=== PATIENT | male | born 1945 | race Caucasian/White ===

== ENCOUNTER 2019-02-23 14:33 | Inpatient (IN) | payer OTHER ==
[2019-02-23] MEDS ORDERED: Sodium Chloride 0.9% 10 ML Syringe FLUSH PRN (14:50)
--- NOTE | 2019-02-23 15:00 | EDM.PDOC ---
ED HPI GENERAL MEDICAL PROBLEM - General Chief Complaint: Respiratory Problem Stated Complaint: SHORTNESS OF BREATH Time Seen by Provider: 02/23/19 14:37 Source of Information: Reports: Patient History Limitations: Reports: No Limitations - History of Present Illness INITIAL COMMENTS - FREE TEXT/NARRATIVE: Patient is a 73-year-old gentleman who presents to the emergency department this afternoon with a complaint of shortness of breath. Patient states that approximately noon today while laying in bed he developed shortness of breath. Patient denied any chest pain at that time. Patient admits to having a cough for a couple days and some yellow sputum. Patient states that he quit smoking cigarettes 3 weeks ago. Patient felt warm and clammy today but did not take temperature. Patient has history of hypertension but no further cardiac issues or workups. Patient denies nausea, vomiting, diarrhea, out of country travel, lower extremity edema, chest pain, headache, or trauma. Onset: Today Onset Date: 02/23/19 Onset Time: 12:00 Duration: Hour(s): Quality: Reports: Other (Denies chest pain) Improves with: Reports: None Worsens with: Reports: None Context: Reports: Other (Initiated while at rest) Associated Symptoms: Reports: No Other Symptoms - Related Data Allergies Allergy/AdvReac Type Severity Reaction Status Date / Time No Known Drug Allergies Allergy Cannot Verified 02/23/19 16:21 Remember pineapple Allergy Facial Verified 02/23/19 16:21 Swelling Home Meds: Home Meds Cyclobenzaprine [Flexeril] 20 mg PO BEDTIME 02/23/19 [History] DULoxetine HCl [Cymbalta] 60 mg PO DAILY 02/23/19 [History] Lisinopril 10 mg PO DAILY 02/23/19 [History] Morphine Sulfate [Morphine Sulfate ER] 45 mg PO Q12H 02/23/19 [History] Omeprazole 20 mg PO BID 02/23/19 [History] Tamsulosin [Tamsulosin 24 Hr] 0.4 mg PO DAILY 02/23/19 [History] amLODIPine Besylate [Norvasc] 5 mg PO DAILY 02/23/19 [History] ED ROS GENERAL - Review of Systems Review Of Systems: ROS reveals no pertinent complaints other than HPI. Constitutional: Reports: Fever HEENT: Reports: No Symptoms Respiratory: Reports: Shortness of Breath, Cough, Sputum Cardiovascular: Reports: No Symptoms. Denies: Chest Pain Endocrine: Reports: No Symptoms GI/Abdominal: Reports: No Symptoms : Reports: No Symptoms Musculoskeletal: Reports: No Symptoms Skin: Reports: No Symptoms Neurological: Reports: No Symptoms Psychiatric: Reports: No Symptoms Hematologic/Lymphatic: Reports: No Symptoms Immunologic: Reports: No Symptoms ED EXAM, GENERAL - Physical Exam Exam: See Below Exam Limited By: No Limitations General Appearance: Alert, WD/WN, No Apparent Distress Eye Exam: Bilateral Eye: Normal Inspection Nose: Normal Inspection, Normal Mucosa, No Blood Throat/Mouth: Normal Inspection, Normal Oropharynx, No Airway Compromise Head: Atraumatic, Normocephalic Neck: Normal Inspection, Supple, Non-Tender, Full Range of Motion Respiratory/Chest: No Respiratory Distress, No Accessory Muscle Use, Chest Non- Tender, Decreased Breath Sounds (Bibasilar) Cardiovascular: No Murmur, Tachycardia GI/Abdominal: Normal Bowel Sounds, Soft, Non-Tender, No Organomegaly, No Distention, No Abnormal Bruit, No Mass Back Exam: Normal Inspection. No: CVA Tenderness (L), CVA Tenderness (R) Extremities: Normal Inspection, No Pedal Edema Neurological: Alert, Oriented, Normal Cognition Psychiatric: Normal Affect, Normal Mood Skin Exam: Warm, Dry, Intact, Normal Color, No Rash Lymphatic: No Adenopathy Course - Vital Signs Last Recorded V/S: Last Vital Signs Temp 98.6 F 02/24/19 07:00 Pulse 78 02/24/19 07:00 Resp 20 02/24/19 07:00 BP 140/71 02/24/19 07:00 Pulse Ox 93 L 02/24/19 07:00 - Orders/Labs/Meds Orders: Active Orders 24 hr Category Date Time Status EKG Documentation Completion [RC] ASDIRECTED Care 02/23/19 14:49 Active Peripheral IV Care [RC] . DIRECTED Care 02/23/19 14:50 Active CULTURE BLOOD [BC] Stat Lab 02/23/19 15:20 Received CULTURE BLOOD [BC] Stat Lab 02/23/19 15:30 Received Sodium Chloride 0.9% [Saline Flush] Med 02/23/19 14:50 Active 10 ml FLUSH Q8HR PRN Blood Culture x2 Reflex Set [OM.PC] Stat Oth 02/23/19 15:00 Ordered Peripheral IV Insertion Adult [OM.PC] Routine Oth 02/23/19 14:50 Ordered Medication Orders Acetaminophen (Tylenol) 650 mg PO Q4H PRN PRN Reason: Pain (Mild 1-3)/fever Albuterol/Ipratropium (Duoneb 3.0-0.5 Mg/3 Ml) 3 ml NEB Q4H PRN PRN Reason: Shortness Of Breath/wheezing Amlodipine Besylate (Norvasc) 5 mg PO BEDTIME [facility] Azithromycin (Zithromax) 250 mg PO DAILY [facility] Last Admin: 02/24/19 09:16 Dose: 250 mg Ceftriaxone Sodium (Rocephin) 1 gm IVPUSH Q24H [facility] Last Admin: 02/24/19 09:17 Dose: 1 gm Cyclobenzaprine HCl (Flexeril) 20 mg PO BEDTIME [facility] Last Admin: 02/23/19 21:33 Dose: Duloxetine HCl (Cymbalta) 60 mg PO DAILY [facility] Last Admin: 02/24/19 09:16 Dose: 60 mg Sodium Chloride (Normal Saline) 1,000 mls @ 125 mls/hr IV ASDIRECTED [facility] Last Admin: 02/24/19 04:27 Dose: 125 mls/hr Infusion: 02/24/19 04:22 Dose: 125 mls/hr Admin: 02/23/19 20:22 Dose: 125 mls/hr Lisinopril (Prinivil) 10 mg PO DAILY [facility] Last Admin: 02/24/19 10:01 Dose: Not Given Magnesium Oxide (Magnesium Oxide) 500 mg PO DAILY [facility] Last Admin: 02/24/19 09:16 Dose: 500 mg Morphine Sulfate (Ms Contin) 45 mg PO Q12H [facility] Last Admin: 02/24/19 07:30 Dose: 45 mg Admin: 02/23/19 21:33 Dose: Omeprazole (Omeprazole) 20 mg PO BIDAC [facility] Last Admin: 02/24/19 07:27 Dose: 20 mg Admin: 02/23/19 21:34 Dose: Sodium Chloride (Saline Flush) 10 ml FLUSH Q8HR PRN PRN Reason: keep vein open Last Admin: 02/24/19 09:17 Dose: 10 ml Tamsulosin HCl (Flomax) 0.4 mg PO DAILY [facility] Last Admin: 02/24/19 09:16 Dose: 0.4 mg Labs: Laboratory Tests 02/23/19 02/23/19 02/23/19 Range/Units 15:30 15:30 15:30 WBC 17.62 H (5.00-10.00) 10^3/uL RBC 3.88 L (4.50-6.00) 10^6/uL Hgb 12.6 L (13.0-17.0) g/dL Hct 36.5 L (40.0-52.0) % MCV 94.1 H (82.0-92.0) fL MCH 32.5 H (27.0-31.0) pg MCHC 34.5 (32.0-36.0) g/dL RDW 12.2 (11.5-14.5) % Plt Count 284 (150-400) 10^3/uL MPV 9.3 (7.4-10.4) fL Add Manual Diff Yes Neutrophils % (Manual) 94 H (50-70) % Lymphocytes % (Manual) 4 L (20-40) % Monocytes % (Manual) 2 (2-8) % Absolute Neutrophils 16.5628 Lymphocytes # (Manual) 0.7048 Monocytes # (Manual) 0.3524 PT 9.7 (8.9-11.4) SEC INR 1.0 (0.9-1.1) APTT 29.3 (23.1-31.3) SEC Sodium 129 L (136-145) mmol/L Potassium 4.2 (3.3-5.3) mmol/L Chloride 92 L (98-115) mmol/L Carbon Dioxide 12.7 L (21.0-32.0) mmol/L Anion Gap 28.5 H (5-15) mmol/L BUN 14 (6-25) mg/dL Creatinine 0.83 (0.51-1.17) mg/dL Est Cr Clr Drug Dosing 75.36 mL/min Estimated GFR (MDRD) > 60 mL/min Glucose 85 (75 - 99) mg/dL Calcium 8.7 (8.7-10.3) mg/dL Magnesium 1.7 L (1.8-2.4) mg/dL Total Bilirubin 1.5 H (0.2-1.0) mg/dL AST 38 H (15-37) U/L ALT 18 (12-78) U/L Alkaline Phosphatase 91 (46-116) IU/L CK-MB (CK-2) 1.50 (0.00-4.30) ng/mL Troponin I 0.29 H* (0.00-0.070) ng/mL B-Natriuretic Peptide 27 (0-100) pg/mL Total Protein 7.8 (6.4-8.2) g/dL Albumin 3.51 (3.00-4.80) g/dL Meds: Medications Generic Name Dose Route Start Last Admin Trade Name Freq PRN Reason Stop Dose Admin Acetaminophen 650 mg 02/23/19 16:24 Tylenol PO Q4H PRN Pain (Mild 1-3)/fever Albuterol/Ipratropium 3 ml 02/23/19 16:24 Duoneb 3.0-0.5 Mg/3 Ml NEB Q4H PRN Shortness Of Breath/wheezing Amlodipine Besylate 5 mg 02/24/19 21:00 Norvasc PO BEDTIME [facility] Azithromycin 250 mg 02/24/19 09:00 02/24/19 09:16 Zithromax PO 250 mg DAILY [facility] Administration Ceftriaxone Sodium 1 gm 02/24/19 09:00 02/24/19 09:17 Rocephin IVPUSH 1 gm Q24H [facility] Administration Cyclobenzaprine HCl 20 mg 02/23/19 21:00 02/23/19 21:33 Flexeril PO Not Given BEDTIME [facility] Duloxetine HCl 60 mg 02/24/19 09:00 02/24/19 09:16 Cymbalta PO 60 mg DAILY [facility] Administration Sodium Chloride 1,000 mls @ 125 mls/hr 02/23/19 16:30 02/24/19 04:27 Normal Saline IV 125 mls/hr ASDIRECTED [facility] Administration Lisinopril 10 mg 02/24/19 09:00 02/24/19 10:01 Prinivil PO Not Given DAILY [facility] Magnesium Oxide 500 mg 02/24/19 09:00 02/24/19 09:16 Magnesium Oxide PO 500 mg DAILY [facility] Administration Morphine Sulfate 45 mg 02/23/19 20:30 02/24/19 07:30 Ms Contin PO 45 mg Q12H [facility] Administration Omeprazole 20 mg 02/23/19 21:00 02/24/19 07:27 Omeprazole PO 20 mg BIDAC [facility] Administration Sodium Chloride 10 ml 02/23/19 14:50 02/24/19 09:17 Saline Flush FLUSH 10 ml Q8HR PRN Administration keep vein open Tamsulosin HCl 0.4 mg 02/24/19 09:00 02/24/19 09:16 Flomax PO 0.4 mg DAILY [facility] Administration Discontinued Medications Generic Name Dose Route Start Last Admin Trade Name Freq PRN Reason Stop Dose Admin Acetaminophen 650 mg 02/23/19 16:10 02/23/19 16:33 Tylenol PO 02/23/19 16:11 650 mg NOW ONE Administration Amlodipine Besylate 5 mg 02/24/19 09:00 02/24/19 10:03 Norvasc PO Not Given DAILY [facility] Azithromycin 500 mg 02/23/19 16:12 02/23/19 16:24 Zithromax PO 02/23/19 16:13 500 mg ONETIME ONE Administration Ceftriaxone Sodium 1 gm 02/23/19 16:12 02/23/19 16:27 Rocephin IVPUSH 02/23/19 16:13 1 gm ONETIME ONE Administration - Radiology Interpretation Free Text/Narrative:: Chest x-ray shows right middle and lower lobe pneumonia - Re-Assessments/Exams Free Text/Narrative Re-Assessment/Exam: 02/24/19 10:59 Vital signs stable. Patient will be admitted to Dr. Euceda's service. Rocephin 1 g IV and Zithromax 500 mg by mouth given Free Text/Narrative Re-Assessment/Exam: 02/24/19 11:10 Discussed EKG and troponin findings with Dr. Berger, cardiology at [facility] at 1615 on 02/23/2019. She interpreted EKG, as not being myocardial infarction and troponin was elevated because of fever and pneumonia status. Patient was therefore admitted for pneumonia only. Departure - Departure Time of Disposition: 16:30 Disposition: Home, Self-Care 01 Condition: Fair Clinical Impression: Pneumonia Qualifiers: Pneumonia type: due to unspecified organism Laterality: right Lung location: lower lobe of lung Qualified Code(s): J18.1 - Lobar pneumonia, unspecified organism - Discharge Information - My Orders Last 24 Hours: My Active Orders 02/23/19 14:49 EKG Documentation Completion [RC] ASDIRECTED 02/23/19 14:50 Peripheral IV Care [RC] . DIRECTED Sodium Chloride 0.9% [Saline Flush] 10 ml FLUSH Q8HR PRN Peripheral IV Insertion Adult [OM.PC] Routine 02/23/19 15:00 Blood Culture x2 Reflex Set [OM.PC] Stat 02/23/19 15:20 CULTURE BLOOD [BC] Stat 02/23/19 15:30 CULTURE BLOOD [BC] Stat - Assessment/Plan Admission H&P: Please use this note as an admission H&P Last 24 Hours: My Active Orders 02/23/19 14:49 EKG Documentation Completion [RC] ASDIRECTED 02/23/19 14:50 Peripheral IV Care [RC] . DIRECTED Sodium Chloride 0.9% [Saline Flush] 10 ml FLUSH Q8HR PRN Peripheral IV Insertion Adult [OM.PC] Routine 02/23/19 15:00 Blood Culture x2 Reflex Set [OM.PC] Stat 02/23/19 15:20 CULTURE BLOOD [BC] Stat 02/23/19 15:30 CULTURE BLOOD [BC] Stat Assessment:: Pneumonia Plan: Patient admitted to Dr. Euceda's service
--- NOTE | 2019-02-23 15:56 | CR ---
[id number] RAD/RAD Chest PA And Lateral EXAM: FRONTAL AND LATERAL CHEST INDICATION: Shortness of breath. COMPARISON: November 28, 2012. DISCUSSION: Hyperaeration is consistent with chronic obstructive pulmonary disease. There are mild medial right base infiltrates consistent with pneumonia. Unless clinically indicated sooner, an 8 week follow-up examination is suggested to ensure resolution. Normal heart size. IMPRESSION: 1. Right middle and lower lobe pneumonia. Mayank Strickland MD 02/23/19 [id number] Thank you for allowing us to participate in the care of your patient.
[2019-02-23] MEDS ORDERED: Acetaminophen 325 MG Tab PO ONE (16:10)
[2019-02-23 16:12] LABS: ANION GAP 28.5 mmol/L (5-15); CHLORIDE,CL 92 mmol/L (98-115); SODIUM,NA 129 mmol/L (136-145)
[2019-02-23] MEDS ORDERED: Azithromycin 250 MG Tab PO ONE (16:12)
[2019-02-23] MEDS ORDERED: cefTRIAXone 1 GM Vial IVPUSH ONE (16:12)
[2019-02-23] MEDS ORDERED: Acetaminophen 325 MG Tab PO PRN (16:24)
[2019-02-23] MEDS: Sodium Chloride 0.9% 1,000 ML IV SCH (20:22)
[2019-02-23] MEDS: Morphine 15 MG Tab.ER PO SCH (21:33)
[2019-02-23] MEDS: Cyclobenzaprine 10 MG Tab PO SCH (21:33)
[2019-02-23] MEDS: Omeprazole 20 MG Cap.CR PO SCH (21:34)
[2019-02-24] MEDS: Sodium Chloride 0.9% 1,000 ML IV SCH ×2 (04:27→12:38)
[2019-02-24] MEDS: Omeprazole 20 MG Cap.CR PO SCH ×2 (07:27→18:40)
[2019-02-24] MEDS: Morphine 15 MG Tab.ER PO SCH ×2 (07:30→20:34)
[2019-02-24] MEDS ORDERED: amLODIPine 5 MG Tab PO SCH (09:00)
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
[2019-02-24] MEDS: Magnesium Oxide 500 MG Tab PO SCH (09:16)
[2019-02-24] MEDS: DULoxetine 30 MG Cap PO SCH (09:16)
[2019-02-24] MEDS: Azithromycin 250 MG Tab PO SCH (09:16)
[2019-02-24] MEDS: Tamsulosin 0.4 MG Cap.ER PO SCH (09:16)
[2019-02-24] MEDS: cefTRIAXone 1 GM Vial IVPUSH SCH (09:17)
[2019-02-24] MEDS: Lisinopril 10 MG Tab PO SCH (10:01)
[2019-02-24 10:21] LABS: CHLORIDE,CL 97 mmol/L (98-115); SODIUM,NA 132 mmol/L (136-145)
[2019-02-24] MEDS: Cyclobenzaprine 10 MG Tab PO SCH (20:33)
[2019-02-24] MEDS: amLODIPine 5 MG Tab PO SCH (20:34)
[2019-02-25] MEDS: Albuterol/Ipratropium 3.0-0.5 MG/3 ML Neb Soln NEB PRN (06:54)
[2019-02-25] MEDS: Morphine 15 MG Tab.ER PO SCH ×2 (07:37→21:25)
[2019-02-25] MEDS: Omeprazole 20 MG Cap.CR PO SCH ×2 (07:38→17:05)
[2019-02-25 07:47] LABS: ANION GAP 12.8 mmol/L (5-15); CHLORIDE,CL 99 mmol/L (98-115); SODIUM,NA 136 mmol/L (136-145)
[2019-02-25] MEDS: cefTRIAXone 1 GM Vial IVPUSH SCH (09:28)
[2019-02-25] MEDS: DULoxetine 30 MG Cap PO SCH (09:28)
[2019-02-25] MEDS: Tamsulosin 0.4 MG Cap.ER PO SCH (09:29)
[2019-02-25] MEDS: Magnesium Oxide 500 MG Tab PO SCH (09:29)
[2019-02-25] MEDS: Azithromycin 250 MG Tab PO SCH (09:29)
[2019-02-25] MEDS: Lisinopril 10 MG Tab PO SCH (09:33)
[2019-02-25] MEDS: amLODIPine 5 MG Tab PO SCH (21:25)
[2019-02-25] MEDS: Cyclobenzaprine 10 MG Tab PO SCH (21:27)
[2019-02-26] MEDS: Albuterol/Ipratropium 3.0-0.5 MG/3 ML Neb Soln NEB PRN (07:19)
[2019-02-26 07:46] LABS: ANION GAP 9.7 mmol/L (5-15); CHLORIDE,CL 97 mmol/L (98-115); SODIUM,NA 134 mmol/L (136-145)
[2019-02-26] MEDS: Morphine 15 MG Tab.ER PO SCH (07:48)
[2019-02-26] MEDS: Omeprazole 20 MG Cap.CR PO SCH (07:48)
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
[2019-02-26] MEDS: Azithromycin 250 MG Tab PO SCH (08:55)
[2019-02-26] MEDS: DULoxetine 30 MG Cap PO SCH (08:55)
[2019-02-26] MEDS: Tamsulosin 0.4 MG Cap.ER PO SCH (08:55)
[2019-02-26] MEDS: Magnesium Oxide 500 MG Tab PO SCH (08:55)
[2019-02-26] MEDS: cefTRIAXone 1 GM Vial IVPUSH SCH (08:55)
[2019-02-26] MEDS: Lisinopril 10 MG Tab PO SCH (08:56)
--- NOTE | 2019-02-26 09:12 | PN ---
02/25/2019 PATIENT NAME: NINFA MILLS This is a 73-year-old male who was admitted to the emergency room by Junior Hooper PA-C on 02/23/2019. His chief complaint was shortness of breath. It had occurred that day at approximately noon. He had recently attempted to quit smoking three weeks ago. He was diagnosed with right middle and lower lobe pneumonia. The patient did initially have an elevated troponin. This was discussed with Cardiology who felt that the troponin was elevated due to the patient's fever and pneumonia status. The patient is a DNR DNI. He had an elevated white count on admission of 17.62. This has improved to 10.92 today and is trending downward. Troponin initially was 0.29 and has normalized yesterday to 0.04. The remainder of his labs are unremarkable. The patient states he is feeling better. He is being treated with azithromycin and Rocephin. Blood cultures have been drawn and they have revealed no growth. The patient has had pneumonia in the past. He does have a history of hypertension, but no other cardiac history. He has a history of chronic low back pain and takes MS Contin b.i.d. for the same. He has a history of bleeding gastric ulcer and is on GI protection with PPI therapy, namely omeprazole. His appetite is good. He has been afebrile and the remainder of his vitals have been stable. PHYSICAL EXAMINATION: VITAL SIGNS: Temp is 98.9, pulse 76, respirations 24, and blood pressure 99/68. SKIN: Warm and dry to touch. CARDIAC: Reveals S1, S2 to be normal. Rate and rhythm are regular. No murmur, click, or gallop is auscultated. LUNGS: Clear. ABDOMEN: Soft, nontender. Bowel sounds present in all four quadrants. EXTREMITIES: There is no pedal edema. IMPRESSION: 1. Right middle and lower lobe pneumonia. He is improving with antibiotic therapy, namely azithromycin and Rocephin. Blood cultures have had no growth thus far. Sputum culture was ordered but I do not see a result on this as of yet. 2. Neutrophilic leukocytosis secondary to right lower lobe and middle lobe pneumonia, improving. 3. Elevated troponin, trended downward and no chest pain or EKG changes. 4. He did have hypomagnesemia on admit, which is now normalized at 2.0. 5. Hyponatremia. This has at last normalized as well. Sodium today is 136. 6. History of bleeding gastric ulcer on PPI therapy. 7. Chronic pain. He is on MS Contin for the same. 8. He does have BPH as well and will continue on tamsulosin. I am seeing him today on inpatient rounds planning for discharge tomorrow. Dr. Jenny Euceda will see the patient tomorrow and make the final decision for discharge. /[id number]/MODL
== END 2019-02-26 11:20 | disposition home or self-care (01) | DRG 194 ==
LOC: KA.ED 14:33 → KA.MS 16:24
PROVIDERS: ADMIT Physician Assistant Surgical; ATTEND Internal Medicine
DX: J18.1 Lobar pneumonia, unspecified organism (principal); E87.1 Hypo-osmolality and hyponatremia; I10 Essential (primary) hypertension; Z66 Do not resuscitate; G89.29 Other chronic pain; M54.9 Dorsalgia, unspecified; R19.7 Diarrhea, unspecified; E83.42 Hypomagnesemia; N40.0 Benign prostatic hyperplasia without lower urinary tract symptoms; Z87.891 Personal history of nicotine dependence; Z79.899 Other long term (current) drug therapy
CPT/HCPCS: 36415; 71046; 80048; 80053; 82553; 83735; 83880; 84145; 84484; 85025; 85610; 85730; 87040; 87070; 87205; 93005; 94640; 96374; 99285-25; A9270-GY; J0696; J7030; J7620-GY

== ENCOUNTER 2021-06-07 18:09 | Emergency (ER) | payer OTHER ==
[2021-06-07] MEDS ORDERED: Sodium Chloride 0.9% 10 ML Syringe FLUSH PRN (18:19)
[2021-06-07] MEDS ORDERED: Sodium Chloride 0.9% 1,000 ML IV ONE (18:19)
[2021-06-07] MEDS ORDERED: Naloxone 0.4 MG/ML Syringe IVPUSH ONE (18:26)
--- NOTE | 2021-06-07 18:33 | EDM.PDOC ---
ED HPI GENERAL MEDICAL PROBLEM - General Chief Complaint: Neuro Symptoms/Deficits Stated Complaint: UNRESPONSIVE Time Seen by Provider: 06/07/21 18:15 Source of Information: Reports: EMS History Limitations: Reports: Other (UNRESPONSIVE) - History of Present Illness INITIAL COMMENTS - FREE TEXT/NARRATIVE: 75 YO WM PRESENTS TO ER BY EMS UNRESPONSIVE. PT WAS LAST SEEN NORMAL YESTERDAY AFTERNOON. PT WAS FOUND BY DAUGHTER UNRESPONSIVE ON THE COUCH AND SHE CALLED 911. PT WAS BROUGHT TO ER WITH BP-70/40'S AND NO RESPIRATORY DRIVE. LIVING WILL ON RECORD INDICATED PT IS DNR/DNI FROM 2019. DISCUSSED WITH FAMILY AND THEY WERE UNAWARE OF ANY CHANGES TO THIS LIVING WILL. WHILE REVIEWING PATIENTS MEDICATION IT WAS FOUND HE TAKES MORPHINE 30MG SR FOR CHRONIC PAIN. PT WAS GIVEN NARCAN 0.4MG IV AND IMMEDIATELY BEGAN TO BREATH ON HIS OWN. PT ABLE TO VERBALLY COMMUNICATE WITHOUT EVIDENCE OF SLURRED SPEECH. PT ABLE TO MOVE ALL EXTREMITIES WITHOUT DIFFICULTY. PT DENIES CHEST PAIN. GCS-15, ALERT AND ORIENTED X 3 CURRENTLY. Onset: Sudden Location: Reports: Generalized Severity: Severe Improves with: Reports: None Worsens with: Reports: None Associated Symptoms: Reports: Confusion, Weakness. Denies: Chest Pain, Fever/Chills - Related Data Allergies Allergy/AdvReac Type Severity Reaction Status Date / Time No Known Drug Allergies Allergy Cannot Verified 02/23/19 16:21 Remember pineapple Allergy Facial Verified 02/23/19 16:21 Swelling Home Meds: Home Meds Cyclobenzaprine [Flexeril] 20 mg PO BEDTIME 02/23/19 [History] DULoxetine HCl [Cymbalta] 60 mg PO DAILY 02/23/19 [History] Lisinopril 10 mg PO DAILY 02/23/19 [History] Morphine Sulfate [Morphine Sulfate ER] 45 mg PO Q12H 02/23/19 [History] Omeprazole 20 mg PO BID 02/23/19 [History] Tamsulosin [Flomax] 0.4 mg PO DAILY 02/23/19 [History] amLODIPine Besylate [Norvasc] 5 mg PO DAILY 02/23/19 [History] Azithromycin [Zithromax] 250 mg PO DAILY #1 tablet 02/26/19 [Rx] Past Medical History HEENT History: Reports: Cataract Cardiovascular History: Reports: Hypertension Respiratory History: Reports: Pneumonia, Recurrent Gastrointestinal History: Reports: GI Bleed Other Gastrointestinal History: ulcer Musculoskeletal History: Reports: Back Pain, Chronic - Infectious Disease History Infectious Disease History: Reports: Chicken Pox - Past Surgical History HEENT Surgical History: Reports: Cataract Surgery Cardiovascular Surgical History: Reports: None Respiratory Surgical History: Reports: None GI Surgical History: Reports: None Musculoskeletal Surgical History: Reports: None Social & Family History - Caffeine Use Caffeine Use: Reports: Coffee, Soda Other Caffeine Use: coke ED ROS GENERAL - Review of Systems Review Of Systems: Unable To Obtain Reason Not Obtained: unresponsive Cardiovascular: Reports: Blood Pressure Problem GI/Abdominal: Reports: No Symptoms Musculoskeletal: Reports: Arm Pain Neurological: Reports: Confusion, Tingling Psychiatric: Reports: Confusion ED EXAM, NEURO - Physical Exam Exam: See Below General Appearance: Alert, Lethargic, Mild Distress Eye Exam: Bilateral Eye: EOMI, PERRL Throat/Mouth: Normal Inspection, Normal Lips, Normal Gums, Normal Oropharynx, Normal Voice, No Airway Compromise Head Exam: Atraumatic, Normocephalic Neck: Normal Inspection, Supple, Non-Tender, Full Range of Motion Respiratory/Chest: No Respiratory Distress, Normal Breath Sounds, No Accessory Muscle Use, Chest Non-Tender, Rhonchi Cardiovascular: Normal Peripheral Pulses, Regular Rate, Rhythm, Tachycardia GI/Abdominal: Normal Bowel Sounds, Soft, Non-Tender, No Organomegaly, No Distention, No Abnormal Bruit, No Mass Neurological: Alert, Normal Mood/Affect, Normal Dorsiflexion, CN II-XII Intact, Normal Plantar Flexion, Normal Reflexes, No Motor/Sensory Deficits Extremities: Normal Inspection, Normal Range of Motion, Non-Tender, No Pedal Edema, Normal Capillary Refill Skin Exam: Warm, Dry, Intact, Normal Color, No Rash #1 Interpretation EKG Date: 06/07/21 Time: 18:24 Rhythm: NSR Rate (Beats/Min): 102 [place]: Normal P-Wave: Present QRS: Normal ST-T: Normal QT: Normal Comparison: NA - No Prior EKG Course - Vital Signs Last Recorded V/S: Last Vital Signs Temp 97.6 F 06/07/21 18:10 Pulse 107 H 06/07/21 19:07 Resp 16 06/07/21 19:07 BP 93/71 06/07/21 19:07 Pulse Ox 80 L 06/07/21 18:10 - Orders/Labs/Meds Orders: Active Orders 24 hr Category Date Time Status Blood Pressure Mgt: Sepsis [RC] Q15MX2 Care 06/07/21 18:20 Active Cardiac Monitoring [RC] CONTINUOUS Care 06/07/21 18:20 Active EKG Documentation Completion [RC] ASDIRECTED Care 06/07/21 18:20 Active CULTURE BLOOD [BC] Stat Lab 06/07/21 18:20 Ordered CULTURE BLOOD [BC] Stat Lab 06/07/21 18:20 Ordered REFLEX LACTIC ACID YES OR NO [CHEM] Routine Lab 06/07/21 19:05 Received UA W/MICROSCOPIC [URIN] Stat Lab 06/07/21 18:20 Ordered Heparin Sodium/D5W 250 ml Med 06/07/21 19:15 Ordered IV TITRATE Sodium Chloride 0.9% [Saline Flush] Med 06/07/21 18:19 Active 10 ml FLUSH Q8HR PRN Blood Culture x2 Reflex Set [OM.PC] Stat Oth 06/07/21 18:20 Ordered Saline Lock Insert [OM.PC] Stat Oth 06/07/21 18:20 Ordered Severe Sepsis Onset Time [OM.PC] Stat Oth 06/07/21 18:20 Ordered EKG 12 Lead [EK] Stat Ther 06/07/21 18:19 Ordered Medication Orders Heparin Sodium/Dextrose () 250 mls @ 6.586 mls/hr IV TITRATE HARMAN; Protocol Sodium Chloride (Sodium Chloride 0.9% 10 Ml Syringe) 10 ml FLUSH Q8HR PRN PRN Reason: keep vein open Labs: Laboratory Tests 06/07/21 06/07/21 06/07/21 Range/Units 18:00 18:00 18:00 WBC 14.72 H (5.00-10.00) 10^3/uL RBC 3.50 L (4.50-6.00) 10^6/uL Hgb 11.2 L (13.0-17.0) g/dL Hct 33.1 L (40.0-52.0) % MCV 94.6 H (82.0-92.0) fL MCH 32.0 H (27.0-31.0) pg MCHC 33.8 (32.0-36.0) g/dL RDW 11.8 (11.5-14.5) % Plt Count 263 (150-400) 10^3/uL MPV 11.0 H (7.4-10.4) fL Immature Gran % (Auto) 0.4 (0.0-5.0) % Neut % (Auto) 86.1 H (50.0-70.0) % Lymph % (Auto) 5.0 L (20.0-40.0) % [place] % (Auto) 8.2 H (2.0-8.0) % Eos % (Auto) 0.0 L (1.0-3.0) % Baso % (Auto) 0.3 (0.0-1.0) % Neut # (Auto) 12.68 H (2.50-7.00) 10^3/uL Lymph # (Auto) 0.73 L (1.00-4.00) 10^3/uL [place] # (Auto) 1.21 H (0.10-0.80) 10^3/uL Eos # (Auto) 0.00 L (0.10-0.30) 10^3/uL Baso # (Auto) 0.04 (0.00-0.10) 10^3/uL Immature Gran # (Auto) 0.06 (0.00-0.50) 10^3/uL PT 10.0 (9.2-11.2) SEC INR 1.0 (0.9-1.1) APTT 34.6 H (22.8-31.4) SEC Sodium 121 L (136-145) mmol/L Potassium 5.4 H (3.5-5.1) mmol/L Chloride 86 L* (98-107) mmol/L Carbon Dioxide 22.4 (21.0-32.0) mmol/L Anion Gap 18.0 H (5-15) mmol/L BUN 21 H (7-18) mg/dL Creatinine 1.75 H (0.51-1.17) mg/dL Est Cr Clr Drug Dosing TNP Estimated GFR (MDRD) 38 mL/min Glucose 150 H (70-140) mg/dL Lactic Acid (0.4-2.0) mmol/L Calcium 9.1 (8.7-10.3) mg/dL Total Bilirubin 3.5 H (0.2-1.0) mg/dL AST 271 H (15-37) U/L ALT 79 H (14-63) U/L Alkaline Phosphatase 111 (46-116) U/L Troponin I High Sens 2770.400 H* (0-76.000) pg/mL Total Protein 7.5 (6.4-8.2) g/dL Albumin 3.12 L (3.40-5.00) g/dL 06/07/21 Range/Units 18:40 WBC (5.00-10.00) 10^3/uL RBC (4.50-6.00) 10^6/uL Hgb (13.0-17.0) g/dL Hct (40.0-52.0) % MCV (82.0-92.0) fL MCH (27.0-31.0) pg MCHC (32.0-36.0) g/dL RDW (11.5-14.5) % Plt Count (150-400) 10^3/uL MPV (7.4-10.4) fL Immature Gran % (Auto) (0.0-5.0) % Neut % (Auto) (50.0-70.0) % Lymph % (Auto) (20.0-40.0) % [place] % (Auto) (2.0-8.0) % Eos % (Auto) (1.0-3.0) % Baso % (Auto) (0.0-1.0) % Neut # (Auto) (2.50-7.00) 10^3/uL Lymph # (Auto) (1.00-4.00) 10^3/uL [place] # (Auto) (0.10-0.80) 10^3/uL Eos # (Auto) (0.10-0.30) 10^3/uL Baso # (Auto) (0.00-0.10) 10^3/uL Immature Gran # (Auto) (0.00-0.50) 10^3/uL PT (9.2-11.2) SEC INR (0.9-1.1) APTT (22.8-31.4) SEC Sodium (136-145) mmol/L Potassium (3.5-5.1) mmol/L Chloride (98-107) mmol/L Carbon Dioxide (21.0-32.0) mmol/L Anion Gap (5-15) mmol/L BUN (7-18) mg/dL Creatinine (0.51-1.17) mg/dL Est Cr Clr Drug Dosing Estimated GFR (MDRD) mL/min Glucose (70-140) mg/dL Lactic Acid 3.7 H (0.4-2.0) mmol/L Calcium (8.7-10.3) mg/dL Total Bilirubin (0.2-1.0) mg/dL AST (15-37) U/L ALT (14-63) U/L Alkaline Phosphatase (46-116) U/L Troponin I High Sens (0-76.000) pg/mL Total Protein (6.4-8.2) g/dL Albumin (3.40-5.00) g/dL Meds: Medications Generic Name Dose Route Start Last Admin Trade Name Freq PRN Reason Stop Dose Admin Heparin Sodium/Dextrose 250 mls @ 6.586 mls/hr 06/07/21 19:15 IV TITRATE HARMAN Protocol 12 UNITS/KG/HR Sodium Chloride 10 ml 06/07/21 18:19 Sodium Chloride 0.9% 10 Ml Syringe FLUSH Q8HR PRN keep vein open Discontinued Medications Generic Name Dose Route Start Last Admin Trade Name Freq PRN Reason Stop Dose Admin Heparin Sodium (Porcine) 3,300 units 06/07/21 19:15 06/07/21 19:22 Heparin Sodium 5,000 Units/Ml Vial IVPUSH 06/07/21 19:16 3,300 units .BOLUS ONE Administration Sodium Chloride 1,000 mls @ 999 mls/hr 06/07/21 18:19 06/07/21 18:30 Normal Saline IV 06/07/21 19:19 999 mls/hr BOLUS ONE Administration Protocol Naloxone HCl 0.4 mg 06/07/21 18:26 06/07/21 18:35 Naloxone 0.4 Mg/Ml Syringe IVPUSH 06/07/21 18:27 0.4 mg ONETIME ONE Administration Naloxone HCl Confirm 06/07/21 18:30 06/07/21 19:19 Naloxone 0.4 Mg/Ml Sdv Administered 06/07/21 18:31 Not Given Dose 0.4 mg .ROUTE .STK-MED ONE - Radiology Interpretation Free Text/Narrative:: CT HEAD- NO ACUTE FINDINGS CXR- NO ACUTE FINDINGS - Re-Assessments/Exams Free Text/Narrative Re-Assessment/Exam: 06/07/21 19:[address] QUINONES- CARDIOLOGY WHO FELT ELEVATED TROP I MIGHT BE RELATED TO HYPOXEMIA AND HEART STRAIN. AGREED WITH HEPARIN GTT. AWAITING CALL BACK FROM [facility] FOR TRANSFER. 06/07/21 19:[address] HUERTA- [facility]PITAL[facility] WHO ACCEPTED @1924 Departure - Departure Time of Disposition: 19:34 Disposition: DC/Tfer to Acute Hospital 02 Condition: Critical Clinical Impression: Elevated troponin I level, Elevated lactic acid level, Hyponatremia, Non-STEMI (non-ST elevated myocardial infarction) Accidental overdose Qualifiers: Encounter type: initial encounter Qualified Code(s): T50.901A - Poisoning by unspecified drugs, medicaments and biological substances, accidental (unintentional), initial encounter - Discharge Information Referrals: Jenny Funk MD [Primary Care Provider] - Forms: ED Department Discharge, Interfacility Transfer EMTALA Sepsis Event Note (ED) - Focused Exam Vital Signs: Vital Signs Temp Pulse Resp BP Pulse Ox 06/07/21 19:07 107 H 16 93/71 06/07/21 18:10 97.6 F 104 H 8 L 70/42 L 80 L - My Orders Last 24 Hours: My Active Orders 06/07/21 18:19 Sodium Chloride 0.9% [Saline Flush] 10 ml FLUSH Q8HR PRN EKG 12 Lead [EK] Stat 06/07/21 18:20 Blood Pressure Mgt: Sepsis [RC] Q15MX2 Cardiac Monitoring [RC] CONTINUOUS EKG Documentation Completion [RC] ASDIRECTED CULTURE BLOOD [BC] Stat CULTURE BLOOD [BC] Stat UA W/MICROSCOPIC [URIN] Stat Blood Culture x2 Reflex Set [OM.PC] Stat Saline Lock Insert [OM.PC] Stat Severe Sepsis Onset Time [OM.PC] Stat 06/07/21 19:05 REFLEX LACTIC ACID YES OR NO [CHEM] Routine 06/07/21 19:15 Heparin Sodium/D5W 250 ml IV TITRATE - Assessment/Plan Last 24 Hours: My Active Orders 06/07/21 18:19 Sodium Chloride 0.9% [Saline Flush] 10 ml FLUSH Q8HR PRN EKG 12 Lead [EK] Stat 06/07/21 18:20 Blood Pressure Mgt: Sepsis [RC] Q15MX2 Cardiac Monitoring [RC] CONTINUOUS EKG Documentation Completion [RC] ASDIRECTED CULTURE BLOOD [BC] Stat CULTURE BLOOD [BC] Stat UA W/MICROSCOPIC [URIN] Stat Blood Culture x2 Reflex Set [OM.PC] Stat Saline Lock Insert [OM.PC] Stat Severe Sepsis Onset Time [OM.PC] Stat 06/07/21 19:05 REFLEX LACTIC ACID YES OR NO [CHEM] Routine 06/07/21 19:15 Heparin Sodium/D5W 250 ml IV TITRATE Assessment:: 1. ACCIDENTAL OVERDOSE- MORPHINE 30MG SR 2. ELEVATED TROP I 3. ELEVATED LACTIC ACID 4. HYPONATREMIA 5. RENAL INSUFFICIENCY Plan: 1. TRANSFER TO [facility]- DR HUERTA 2. SUPPORTIVE CARE 3. SUPPLEMENTAL O2 4. HEPARIN GTT 5. NS @150CC/HR
[2021-06-07] MEDS: Naloxone 0.4 MG/ML SDV ONE ×2 (18:35→19:19)
[2021-06-07 18:43] LABS: SODIUM,NA 121 mmol/L (136-145)
[2021-06-07 18:47] LABS: CHLORIDE,CL 86 mmol/L (98-107)
--- NOTE | 2021-06-07 18:59 | CT ---
[id number] CT/CT Head WO IV EXAM: NONCONTRAST HEAD CT INDICATION: ALTERED MENTAL STATUS. COMPARISON: None. DISCUSSION: Mild to moderate generalized atrophy Moderate multifocal white matter hypoattenuation is nonspecific, but generally ascribed to chronic small vessel ischemia. No mass effect or midline shift. No acute hemorrhage or extra-axial fluid collection. No acute territorial infarct is identified. There is no opacified right ethmoid air cell. IMPRESSION: 1. No acute findings. Mayank Strickland MD 06/07/21 3032 Thank you for allowing us to participate in the care of your patient.
[2021-06-07 19:03] LABS: PTT,PARTIAL THROMBOPLSTIN TIME 34.6 SEC (22.8-31.4)
[2021-06-07] MEDS ORDERED: Heparin Sodium/D5W 250 ML IV SCH (19:15)
[2021-06-07] MEDS ORDERED: Heparin Sodium 5,000 Units/ML Vial IVPUSH ONE (19:15)
--- NOTE | 2021-06-07 19:24 | CR ---
[id number] RAD/RAD Chest Portable EXAM: PORTABLE CHEST INDICATION: AMS COMPARISON: March 25, 2019. DISCUSSION: Hyperinflation compatible with COPD. Linear opacities in the lung bases, favor scarring. No definite infiltrates but the basilar findings could obscure acute pathology. Borderline heart size without evidence of congestive heart failure. IMPRESSION: 1. No acute findings. Mayank Strickland MD 06/07/211921 Thank you for allowing us to participate in the care of your patient.
[2021-06-07] MEDS ORDERED: Heparin Sodium 5,000 Units/ML Vial ONE (22:17)
== END 2021-06-07 19:55 ==
LOC: KA.ED 18:09
DX: T50.901A Poisoning by unspecified drugs, medicaments and biological substances, accidental (unintentional), initial encounter (principal); I21.4 Non-ST elevation (NSTEMI) myocardial infarction; R79.89 Other specified abnormal findings of blood chemistry; R74.02 Elevation of levels of lactic acid dehydrogenase [LDH]; E87.1 Hypo-osmolality and hyponatremia; I10 Essential (primary) hypertension; Z91.018 Allergy to other foods; Z79.899 Other long term (current) drug therapy
CPT/HCPCS: 36415; 70450; 71045; 80053; 83605; 84484; 85025; 85610; 85730; 87040; 96365; 96375; 99284; 99285-25; J1644; J2310; J7030